=== PATIENT | male | born 1990 | race Caucasian/White ===

== ENCOUNTER 2018-05-12 02:26 | Emergency (ER) | payer OTHER ==
--- NOTE | 2018-05-12 04:40 | EDPHY ---
H & P Stated Complaint: syncope, nausea, mid back pain Time Seen by Provider: 05/12/18 02:38 HPI/ROS: HPI The patient presents with concern for likely syncopal episode. The patient has 1 prior episode in the setting of pain several years ago. He was feeling quite anxious about some low back pain that he was having, he was concerned that he may have developed a kidney stone because his brother recently had 1. While feeling anxious and in pain he began to hyperventilate, developed some tingling in his hands and feet and then walked to the bathroom. He lost consciousness, falling onto a carpeted surface. He did not sustain any injuries during the fall. He does continue to have mild lower back pain bilaterally which he describes as a tightness. He does not have any urinary symptoms. He has been going to the gym more than usual. He denies any chest pain, shortness of breath , palpitations. REVIEW OF SYSTEMS 10 systems were reviewed and negative with the exception of the elements mentioned in the history of present illness. PMHx: Healthy, 1 prior syncopal episode Soc Hx: Here with his , [employer] student, no alcohol use PHYSICAL General Appearance: Alert, no distress Eyes: Pupils equal and round no pallor or injection ENT, Mouth: Mucous membranes moist Respiratory: There are no retractions, lungs are clear to auscultation Cardiovascular: Regular rate and rhythm Gastrointestinal: Abdomen is soft and non-tender, no masses, bowel sounds normal , no flank tenderness Neurological: A&O, moves all extremities Skin: Warm and dry, no rashes Musculoskeletal: Neck is supple non tender Extremities: symmetrical, full range of motion Psychiatric: Patient is oriented X 3, there is no agitation Source: Patient Exam Limitations: No limitations - Personal History Current Tetanus/Diphtheria Vaccine: Yes Current Tetanus Diphtheria and Acellular Pertussis (TDAP): Yes - Medical/Surgical History Hx Asthma: No Hx Chronic Respiratory Disease: No Hx Diabetes: No Hx Cardiac Disease: No Hx Renal Disease: No Hx Cirrhosis: No Hx Alcoholism: No Hx HIV/AIDS: No Hx Splenectomy or Spleen Trauma: No Other PMH: wisdom teeth - Social History Smoking Status: Never smoked Constitutional: Initial Vital Signs Temperature (C) 36.3 C 05/12/18 02:30 Heart Rate 75 05/12/18 02:30 Respiratory Rate 18 05/12/18 02:30 Blood Pressure 111/75 05/12/18 02:30 O2 Sat (%) 95 05/12/18 02:30 O2 Delivery Mode Room Air Allergies/Adverse Reactions: No Known Allergies Allergy (Unverified 05/12/18 02:29) Home Medications: Medication Instructions Recorded NK [No Known Home Meds] 05/12/18 Medical Decision Making - Diagnostics EKG Interpretation: EKG: Complete interpretation has been separately recorded in the [email or web address] archive. Summary impression: Normal sinus rhythm Differential Diagnosis: This is a healthy 28-year-old male who presents with an episode of syncope which occurred during an episode of anxiety and pain. EKG is unremarkable. Patient is asymptomatic currently. He was worried about bilateral low back pain which he was concerned could be a kidney stone given his family history. He had a UA here which was completely unremarkable making ureterolithiasis unlikely cause of his symptoms. He has been working out at the gym frequently lately and I suspect that muscle strain is more likely in his case. I suspect ultimately that he suffered from a vasovagal event made worse by anxiety and pain. I doubt any significant arrhythmia or kidney stone. Departure - Departure Disposition: Home, Routine, Self-Care Clinical Impression: Syncope Qualifiers: Syncope type: unspecified Qualified Code(s): R55 - Syncope and collapse Lower back pain Qualifiers: Chronicity: acute Back pain laterality: bilateral Sciatica presence: without sciatica Qualified Code(s): M54.5 - Low back pain Condition: Good Instructions: Syncope (ED) Additional Instructions: Please make sure to drink plenty of fluids and take it easy for the next 1 day. Referrals: [facility]YST[facility] Huggins,. [Clinic] - As per Instructions
[2018-05-12 04:46] VITALS: BP 133/77
--- NOTE | 2018-05-12 06:02 | CPEKG ---
Test Reason : OPEN Blood Pressure : / mmHG Vent. Rate : 084 BPM Atrial Rate : 085 BPM P-R Int : 184 ms QRS Dur : 086 ms QT Int : 352 ms P-R-T Axes : 035 034 004 degrees QTc Int : 417 ms Sinus rhythm Confirmed by Moni Pearson ([id number]) on 05/12/2018 6:01:20 AM Referred By: Moni Pearson Confirmed By:Moni Pearson
== END 2018-05-12 04:46 | disposition home or self-care (01) ==
DX: R55 Syncope and collapse (principal); M54.5 Low back pain